=== PATIENT | male | born 1975 | race African-American/Black ===

== ENCOUNTER 2023-04-11 13:56 | Emergency (ER) | payer OTHER, SELFPAY ==
--- NOTE | 2023-04-11 14:53 | RAD REPORT ---
EXAM DESCRIPTION: RAD - Chest Single View - 04/11/2023 2:43 pm CLINICAL HISTORY: DYSPNEA Chest pain. COMPARISON: No comparisons FINDINGS: Portable technique limits examination quality. Moderate pulmonary edema. The heart is moderate to significantly enlarged. No displaced fractures. IMPRESSION: Moderate CHF.
[2023-04-11] MEDS ORDERED: FUROSEMIDE 40 MG/4 ML VIAL ONE (15:32)
[2023-04-11 16:11] LABS: Lymphocytes % 3.4 % (15.3-44.8); RBC Red Blood Cell Count 4.87 M/uL (4.33-5.43)
[2023-04-11 16:36] LABS: Magnesium 1.1 mg/dL (1.6-2.4); Potassium 4.3 mEq/L (3.5-5.1)
[2023-04-11] MEDS ORDERED: MORPHINE 4 MG/ML SYR ONE (16:36)
[2023-04-11] MEDS ORDERED: ONDANSETRON 4 MG/2 ML VIAL ONE (16:36)
[2023-04-11] MEDS ORDERED: NA CHLORIDE 0.9% 1,000 ML ONE (16:36)
[2023-04-11 16:39] LABS: Troponin High Sensitivity 89.2 pg/mL (<58.9)
[2023-04-11 17:12] LABS: Protime INR 1.75
[2023-04-11 17:23] LABS: Albumin 3.2 g/dL (3.4-5.0); Bilirubin Direct 0.7 mg/dL (0-0.2); Bilirubin Indirect, Calculated 0.6 mg/dL (0.2-0.8); Bilirubin Total 1.3 mg/dL (0.2-1.0); Protein, Total 8.9 g/dL (6.4-8.2)
--- NOTE | 2023-04-11 17:42 | RAD REPORT ---
EXAM DESCRIPTION: CT - Abdomen Pelvis Wo Contrast - 04/11/2023 5:31 pm CLINICAL HISTORY: Abdominal pain. ABD PAIN COMPARISON: No comparisons TECHNIQUE: CT imaging of the abdomen and pelvis was performed without contrast. Solid organ, bowel a nd vascular assessment is limited due to lack of IV and oral contrast. All CT scans are performed using dose optimization technique as appropriate and may include automated exposure control or mA/KV adjustment according to patient size. FINDINGS: The lower lung le are clear. The liver, spleen, pancreas, adrenal glands are within normal limits for a limited non-contrast exami nation.Mild bilateral hydronephrosis and hydroureter. Urinary bladder wall is significantly thickened . Nunez catheter is in place. No bowel obstruction, free air, free fluid or abscess. The appendix is normal. The osseous structures are within normal limits. IMPRESSION: Mild bilateral hydronephrosis and hydroureter. No obstructing stones seen. Urinary bladd er wall is moderately thickened which may indicate chronic inflammation or infection. A limited non-contrast examination was performed as detailed.
[2023-04-11 17:44] LABS: Specific Gravity 1.014 (1.005-1.030); Urine Bacteria >50 /HPF (<20); Urine Bilirubin NEGATIVE (Negative); Urine Blood 3+ (Negative); Urine Clarity Extremely Turbid (Clear); Urine Color Light-Orange (Yellow); Urine Crystals Unidentified Few /HPF (None Seen); Urine Glucose NEGATIVE (Negative); Urine Mucus 4+ /HPF (None Seen); Urine Protein 2+ (Negative); Urine RBC >50 /HPF (None Seen); Urine Urobilinogen 1+ (Normal); Urine WBC Clump Few /HPF (None Seen); Urine pH 7.5 (5.0-7.0)
[2023-04-11] MEDS ORDERED: CEFTRIAXONE 1000 MG/VIAL ONE ×2 (17:50→19:30)
[2023-04-11] MEDS ORDERED: Magnesium Sulfate 2gm IVPB 2 G/50 ML BAG IV ONE (17:51)
--- NOTE | 2023-04-11 18:52 | ER ---
Nurse's Notes [facility] Name: Maximus Thompson Age: 47 yrs Sex: Male : 1975 Arrival Date: 04/11/2023 Time: 13:56 Bed 16 Private MD: Diagnosis: UTI/ Urinary tract infection, site not specified;Severe sepsis with septic shock;Other hydronephrosis;Hydroureter;Unspecified combined systolic (congestive) and diastolic (congestive) heart failure;Acute kidney failure, unspecified Presentation: 04/11 14:34 Chief complaint: Patient states: toned out to patient home for shortness of breath - ld1 96% RA. Coronavirus screen: At this time, the client does not indicate any symptoms associated with coronavirus-19. Ebola Screen: No symptoms or risks identified at this time. Risk Assessment: Do you want to hurt yourself or someone else? Patient reports no desire to harm self or others. Onset of symptoms was April 11, 2023 at 14:35. 14:34 Method Of Arrival: EMS: [facility] ld1 14:34 Acuity: [place] 3 ld1 Triage Assessment: 14:35 General: Appears in no apparent distress. comfortable, Behavior is calm, cooperative, ld1 appropriate for age. Pain: Denies pain. EENT: No signs and/or symptoms were reported regarding the EENT system. Neuro: Level of Consciousness is awake, alert, obeys commands, Oriented to person, place, time, situation. Cardiovascular: Capillary refill < 3 seconds Patient's skin is warm and dry. Respiratory: Reports shortness of breath at rest on exertion Airway is patent Respiratory effort is even, unlabored, Onset: The symptoms/episode began/occurred suddenly, the patient has mild shortness of breath. GI: Abdomen is round distended. : No signs and/or symptoms were reported regarding the genitourinary system. Derm: No signs and/or symptoms reported regarding the dermatologic system. Musculoskeletal: No signs and/or symptoms reported regarding the musculoskeletal system. Historical: - Allergies: 14:35 No Known Allergies; ld1 - Home Meds: 14:35 None [Active]; ld1 - PMHx: 14:35 Congestive heart failure; pre diabetic; ld1 - PSHx: 14:35 None; ld1 - Immunization history:: Adult Immunizations not immunized. - Social history:: Smoking status: Patient denies any tobacco usage or history of. Patient/guardian denies using alcohol. Screenin:36 [facility] ED Fall Risk Assessment (Adult) History of falling in the last 3 months, ld1 including since admission No falls in past 3 months (0 pts). Abuse screen: Denies threats or abuse. Denies injuries from another. Nutritional screening: No deficits noted. Tuberculosis screening: No symptoms or risk factors identified. Assessment: 14:36 Reassessment: see triage assessment. Cardiovascular: Capillary refill < 3 seconds ld1 Patient's skin is warm and dry. Rhythm is sinus rhythm. Respiratory: Airway is patent Respiratory effort is even, unlabored, Breath sounds are clear bilaterally. 16:04 Reassessment: ERP notified of VS. Charge nurse at bedside inserting ultrasound IV. ld1 16:05 Reassessment: Pt c/o abdominal pain. Notified ERP of complaint at this time. ld1 17:07 Reassessment: No changes from previously documented assessment. ERP and Charge nurse at ld1 bedside assisting with appiah insertion. Pt reported pain to penis - after inspection, notified ERP. Appiah insertion completed at this time. Cloudy blood tinged urine returned upon insertion. Pt reports relief after bladder began to drain. ERP gave verbal order for 50mcg Fentanyl IVP. Administered at this time. Pain: Complains of pain in abdomen, head of penis and shaft of penis. GI: Abdomen is round distended, Reports lower abdominal pain, upper abdominal pain. : Swelling noted at urinary meatus on penis on scrotum Notified ERP Reports burning with urination, incontinence, inability to void, X 2-3 months pain. 21:33 General: Patient report [facility] to [facility] with [facility]. Patient being transferred to [address] at this time.. Vital Signs: 16:03 BP 139 / 115; Pulse 139; Resp 20; Temp 103.2(O); Pulse Ox 99% on R/A; ld1 16:03 Weight 136.08 kg; Height 5 ft. 11 in. ; Pain 8/10; ld1 17:07 BP 130 / 112; Pulse 135; Resp 20; Pulse Ox 99% on R/A; Pain 10/10; ld1 17:11 Temp 99.3(O); ld1 17:58 BP 126 / 75; Pulse 134; Resp 29; Pulse Ox 99% on R/A; ld1 18:18 BP 120 / 71; ld1 19:30 BP 110 / 65; Pulse 123; Resp 32; Temp 99(O); Pulse Ox 99% on R/A; ll3 20:24 BP 120 / 81; Pulse 125; Resp 26; Pulse Ox 98% on R/A; ll3 21:30 BP 109 / 66; Pulse 122; Resp 22; Pulse Ox 98% on 2 lpm NC; pf1 16:03 Body Mass Index 41.84 (136.08 kg, 180.34 cm) ld1 16:03 Pain Scale: Adult ld1 17:07 Pain Scale: Adult ld1 ED Course: 14:00 Patient arrived in ED. em1 14:12 Lenore Rosales FNP-C is PHCP. kb 14:12 Wai Cleary MD is Attending Physician. kb 14:34 Sammi Mohan, JOHN is Primary Nurse. ld1 14:35 Triage completed. ld1 14:35 Arm band placed on right wrist. ld1 14:36 Patient has correct armband on for positive identification. Placed in gown. Bed in low ld1 position. Call light in reach. Side rails up X2. regulatory affairs internship on. Pulse ox on. NIBP on. Door closed. Noise minimized. Warm blanket given. 14:36 No provider procedures requiring assistance completed. ld1 14:45 XRAY Chest (1 view) In Process Unspecified. EDMS 15:34 EKG done, by ED staff. aw1 16:04 Inserted saline lock: 20 gauge in left upper arm, using aseptic technique. Blood ld1 collected. 16:35 Blood Culture Adult (2) Sent. ld1 16:35 Lactate w/ 2H reflex if indic. Sent. ld1 16:35 Protime (+inr) Sent. ld1 16:35 Ptt, Activated Sent. ld1 16:35 Lipase Sent. ld1 16:35 LFT's Sent. ld1 16:44 Attending Physician role handed off by Wai Cleary MD rt 16:44 Duke Mckeon MD is Attending Physician. rt 17:11 Appiah cath inserted, using sterile technique, 16 Fr., by me, by plant buyer, by ED staff, ld1 balloon inflated, urine specimen collected. other Removed 1200 mL of cloudy blood tinged urine. Clamped at this time. 17:16 Appiah cath inserted, using sterile technique, 16 Fr., clamped. mm9 17:33 Abdomen In Process Unspecified. EDMS Administered Medications: 16:03 CANCELLED (Physician Discretion): NS 0.9% IV (30 ml/kg) 30 ml/kg IV at bolus once; kris Sepsis Protocol 16:12 Drug: Acetaminophen PO 1000 mg Route: PO; ld1 16:15 Drug: Furosemide IVP 40 mg Route: IVP; Site: left upper arm; ld1 16:35 Drug: morphine IVP or IV 4 mg Route: IVP; Infused Over: 4 mins; Site: left antecubital; ld1 16:35 Drug: Ondansetron IVP 4 mg Route: IVP; Site: left upper arm; ld1 16:35 Drug: NS 0.9% IV 1000 ml Route: IV; Rate: 1000 ml; Site: left upper arm; ld1 16:45 Drug: fentaNYL (PF) IVP 50 mcg Route: IVP; Site: left upper arm; ld1 17:49 Drug: Magnesium Sulfate IVPB 2 grams Route: IVPB; Infused Over: 2 hrs; Site: left upper ld1 arm; 17:49 Drug: Rocephin IV 1 grams Route: IV; Rate: calculated rate; Site: left upper arm; ld1 19:42 Drug: Rocephin IV 1 grams Route: IV; Rate: calculated rate; Site: left antecubital; ll3 20:15 Follow up: Response: No adverse reaction; Marked relief of symptoms; IV Status: pf1 Completed infusion; IV Intake: 50ml Medication: 14:36 VIS not applicable for this client. ld1 Intake: 20:15 IV: 50ml; Total: 50ml. pf1 Outcome: 18:51 ER care complete, transfer ordered by MD. ponce 21:36 Transferred by ground EMS to [facility], Note: at the pf1 21:36 Condition: stable 21:36 Instructed on the need for transfer, Demonstrated understanding of instructions. 21:37 Patient left the ED. pf1 Signatures: Dispatcher [employer] EDMS Lenore Rosales, GEGE MCDOWELL-Elmer Modi em1 Sammi Mohan RN RN ld1 Bc Humphreys RN RN ll3 Jessica Rasmussen mm9 Duke Mckeon MD MD rt Jennifer Reyes RN RN pf1 Tatiana Alarcon aw1
--- NOTE | 2023-04-11 18:52 | EDPHYS ---
Physician Documentation [facility] Name: Maximus Thompson Age: 47 yrs Sex: Male : 1975 Arrival Date: 04/11/2023 Time: 13:56 Bed 16 Private MD: ED Physician Duke Mckeon HPI: 04/11 18:52 This 47 yrs old Black Male presents to ER via EMS with complaints of Shortness Of kb Breath, Constipation. 18:52 The patient has shortness of breath at rest. Onset: The symptoms/episode began/occurred kb 3 week(s) ago. Duration: The symptoms are continuous. The patient's shortness of breath is aggravated by exertion. Associated signs and symptoms: Pertinent positives: fever, abd pain, difficulty urinating. Severity of symptoms: At their worst the symptoms were moderate in the emergency department the symptoms are unchanged. The patient has not experienced similar symptoms in the past. The patient has not recently seen a physician. Pt reports shortness of breath, lower abd pain and intermittent fever for 3 weeks that has been getting worse.. Historical: - Allergies: 14:35 No Known Allergies; ld1 - Home Meds: 14:35 None [Active]; ld1 - PMHx: 14:35 Congestive heart failure; pre diabetic; ld1 - PSHx: 14:35 None; ld1 - Immunization history:: Adult Immunizations not immunized. - Social history:: Smoking status: Patient denies any tobacco usage or history of. Patient/guardian denies using alcohol. ROS: 16:00 Cardiovascular: Negative for chest pain, palpitations, and edema. kb 16:00 Respiratory: Positive for dyspnea on exertion, shortness of breath. 16:00 All other systems are negative. 18:45 Abdomen/GI: Positive for abdominal pain. kb 18:45 : Positive for urinary symptoms, hematuria, burning with urination, difficulty urinating. 18:51 Constitutional: Positive for fever. kb Exam: 16:00 Respiratory: mild respiratory distress is noted, Respirations: labored breathing, that kb is mild, Breath sounds: decreased breath sounds, that are mild, that are moderate, are located in both bases. 18:45 ENT: Moist Mucous membranes Cardiovascular: Regular rate and rhythm with a normal S1 kb and S2. No gallops, murmurs, or rubs. No pulse deficits. Skin: Warm, dry with normal turgor. Normal color. MS/ Extremity: Pulses equal, no cyanosis. Neurovascular intact. Full, normal range of motion. Neuro: Awake and alert, GCS 15, oriented to person, place, time, and situation. Moves all extremities. Normal gait. 18:45 Constitutional: The patient appears alert, awake, obviously ill, uncomfortable. 18:45 Abdomen/GI: Inspection: obese Bowel sounds: normal, Palpation: moderate abdominal tenderness, in the right lower quadrant and left lower quadrant. 18:45 : Male external genitalia: swelling, penile, tenderness, that is moderate. Vital Signs: 16:03 BP 139 / 115; Pulse 139; Resp 20; Temp 103.2(O); Pulse Ox 99% on R/A; ld1 16:03 Weight 136.08 kg; Height 5 ft. 11 in. ; Pain 8/10; ld1 17:07 BP 130 / 112; Pulse 135; Resp 20; Pulse Ox 99% on R/A; Pain 10/10; ld1 17:11 Temp 99.3(O); ld1 17:58 BP 126 / 75; Pulse 134; Resp 29; Pulse Ox 99% on R/A; ld1 18:18 BP 120 / 71; ld1 19:30 BP 110 / 65; Pulse 123; Resp 32; Temp 99(O); Pulse Ox 99% on R/A; ll3 20:24 BP 120 / 81; Pulse 125; Resp 26; Pulse Ox 98% on R/A; ll3 21:30 BP 109 / 66; Pulse 122; Resp 22; Pulse Ox 98% on 2 lpm NC; pf1 16:03 Body Mass Index 41.84 (136.08 kg, 180.34 cm) ld1 16:03 Pain Scale: Adult ld1 17:07 Pain Scale: Adult ld1 MDM: 14:12 Patient medically screened. kb 16:02 Differential diagnosis: CHF exacerbation, Chronic Obstructive Pulmonary Disease kb Myocardial Infarction pneumonia, pulmonary edema, Pulmonary Embolism Sepsis. Data reviewed: vital signs, nurses notes. 18:47 Antibiotic administration: rocephin. Consideration of Admission/Observation Patient was kb admitted/placed on observation. pt will be transferred due to lack of ICU bed and urology coverage. Management of patient was discussed with the following:. Historians other than the Patient: EMS: [facility]. Care significantly affected by the following chronic conditions: Congestive Heart Failure. Counseling: I had a detailed discussion with the patient and/or guardian regarding: the historical points, exam findings, and any diagnostic results supporting the discharge/admit diagnosis, lab results, radiology results, the need to transfer to another facility. 18:49 ED course: Pt will be given 1000ml of IVF instead of 30ml/kg due to heart kb failure/volume overload. 18:49 ED course: Sepsis reevaluation complete. kb 04/11 14:15 Order name: Basic Metabolic Panel; Complete Time: 16:52 kb 04/11 14:15 Order name: CBC with Diff kb 04/11 14:15 Order name: Magnesium; Complete Time: 16:52 kb 04/11 14:15 Order name: NT PRO-BNP; Complete Time: 16:52 kb 04/11 14:15 Order name: Troponin HS; Complete Time: 16:52 kb 04/11 15:54 Order name: Glucose, Ancillary Testing; Complete Time: 15:55 EDMS 04/11 15:55 Order name: D-Dimer; Complete Time: 17:51 kb 04/11 16:03 Order name: Blood Culture Adult (2) kb 04/11 16:03 Order name: Lactate w/ 2H reflex if indic.; Complete Time: 17:20 kb 04/11 16:03 Order name: Protime (+inr); Complete Time: 17:15 kb 04/11 16:03 Order name: Ptt, Activated; Complete Time: 17:15 kb 04/11 16:03 Order name: LFT's; Complete Time: 17:24 kb 04/11 16:03 Order name: Lipase; Complete Time: 17:24 kb 04/11 17:15 Order name: Urinalysis w/ reflexes; Complete Time: 17:51 kb 04/11 17:46 Order name: Urine Culture EDMS 04/11 20:52 Order name: Manual Differential EDMS 04/11 20:53 Order name: Troponin HS ll3 04/11 21:26 Order name: Lactate Sepsis 2 HR Follow-up EDMS 04/11 14:15 Order name: XRAY Chest (1 view); Complete Time: 14:58 kb 04/11 17:06 Order name: Abdomen ; Complete Time: 17:44 EDMS 04/11 14:15 Order name: EKG; Complete Time: 14:16 kb 04/11 14:15 Order name: Cardiac monitoring; Complete Time: 15:35 kb 04/11 14:15 Order name: EKG - Nurse/Tech; Complete Time: 15:35 kb 04/11 14:15 Order name: IV Saline Lock; Complete Time: 16:05 kb 04/11 14:15 Order name: Labs collected and sent; Complete Time: 16:05 kb 04/11 14:15 Order name: O2 Per Protocol; Complete Time: 14:42 kb 04/11 14:15 Order name: O2 Sat Monitoring; Complete Time: 14:42 kb Administered Medications: 16:03 CANCELLED (Physician Discretion): NS 0.9% IV (30 ml/kg) 30 ml/kg IV at bolus once; kb Sepsis Protocol 16:12 Drug: Acetaminophen PO 1000 mg Route: PO; ld1 16:15 Drug: Furosemide IVP 40 mg Route: IVP; Site: left upper arm; ld1 16:35 Drug: morphine IVP or IV 4 mg Route: IVP; Infused Over: 4 mins; Site: left antecubital; ld1 16:35 Drug: Ondansetron IVP 4 mg Route: IVP; Site: left upper arm; ld1 16:35 Drug: NS 0.9% IV 1000 ml Route: IV; Rate: 1000 ml; Site: left upper arm; ld1 16:45 Drug: fentaNYL (PF) IVP 50 mcg Route: IVP; Site: left upper arm; ld1 17:49 Drug: Magnesium Sulfate IVPB 2 grams Route: IVPB; Infused Over: 2 hrs; Site: left upper ld1 arm; 17:49 Drug: Rocephin IV 1 grams Route: IV; Rate: calculated rate; Site: left upper arm; ld1 19:42 Drug: Rocephin IV 1 grams Route: IV; Rate: calculated rate; Site: left antecubital; ll3 20:15 Follow up: Response: No adverse reaction; Marked relief of symptoms; IV Status: pf1 Completed infusion; IV Intake: 50ml Disposition Summary: 04/11/23 18:51 Transfer Ordered Transfer Location: [facility] kb Reason: Higher level of care kb Condition: Serious kb Problem: new kb Symptoms: are unchanged kb Accepting Physician: (04/11/23 21:37) pf1 Diagnosis - UTI/ Urinary tract infection, site not specified kb - Severe sepsis with septic shock kb - Other hydronephrosis kb - Hydroureter kb - Unspecified combined systolic (congestive) and diastolic (congestive) heart failure kb - Acute kidney failure, unspecified kb Forms: - Medication Reconciliation Form kb - SBAR form kb Signatures: Dispatcher [employer] EDMS Lenore Rosales, MANPOWER DEVELOPMENT SPECIALIST MANAGER-C MANPOWER DEVELOPMENT SPECIALIST MANAGER-Ckb Thomas Roman PA PA jmm Sims, Lauren, RN RN ld1 Bc Humphreys RN RN ll3 Duke Mckeon MD MD rt Jennifer Reyes RN RN pf1 Corrections: (The following items were deleted from the chart) 16:03 16:03 NS 0.9% IV (30 ml/kg) 30 ml/kg IV at bolus once; Sepsis Protocol ordered. kb kb 17:06 16:04 Abdomen Pelvis W Con+CT.RAD.BRZ ordered. EDTN EDMS 18:45 16:00 Respiratory: Positive for dyspnea on exertion, shortness of breath, kb kb 18:47 16:00 Constitutional: This is a well developed, well nourished patient who is awake, kb alert, and in no acute distress. Head/Face: Normocephalic, atraumatic. ENT: Moist Mucous membranes Cardiovascular: Regular rate and rhythm with a normal S1 and S2. No gallops, murmurs, or rubs. No pulse deficits. Abdomen/GI: Soft, non-tender. No distention Skin: Warm, dry with normal turgor. Normal color. MS/ Extremity: Pulses equal, no cyanosis. Neurovascular intact. Full, normal range of motion. Neuro: Awake and alert, GCS 15, oriented to person, place, time, and situation. Moves all extremities. Normal gait. kb 18:51 16:00 Constitutional: Negative for fever, chills, and weight loss, kb kb 19:00 18:51 Dr kb kb 21:37 19:00 Dr kb pf1
[2023-04-11] MEDS ORDERED: NA CHLORIDE 0.9% 50 ML ONE (19:30)
[2023-04-11 20:51] LABS: Blood Morphology Comment NOT SEEN (NOT SEEN); Dohle Bodies PRESENT; Platelet Estimate ADEQ
[2023-04-11 22:32] VITALS: TEMP 99
[2023-04-11 22:33] VITALS: O2SAT 98
[2023-04-11 22:34] VITALS: BP 109/66
--- NOTE | 2023-04-13 14:25 | EKG ---
Test Date: 2023-04-11 Test Time: 15:29:36 First Cook: LOREN MEASUREMENT RESULTS: Intervals: Rate: 137 IN: 142 QRSD: 78 QT: 372 QTc: 561 [place]: P: 72 IN: 142 QRS: 65 T: 65 INTERPRETIVE STATEMENTS: Sinus tachycardia Nonspecific ST abnormality Abnormal ECG No previous ECG available for comparison Electronically Signed On 04-13-23 14:22:24 CDT by Bishnu Dodd
== END 2023-04-11 21:37 | disposition short-term general hospital (02) ==
LOC: ER 13:56
DX: N39.0 Urinary tract infection, site not specified (principal); A41.9 Sepsis, unspecified organism; R65.21 Severe sepsis with septic shock; N13.39 Other hydronephrosis; N13.4 Hydroureter; I50.40 Unspecified combined systolic (congestive) and diastolic (congestive) heart failure; N17.9 Acute kidney failure, unspecified
CPT/HCPCS: 36415; 51702; 71045; 74176; 80048; 80076; 81001; 82947; 83605; 83690; 83735; 83880; 84484; 85025; 85379; 85610; 85730; 87040; 87077; 87086; 87088; 87186; 87205; 93005; 99285; J0696; J1940; J2405; J3475; J7030